=== PATIENT | female | born 1985 | race Caucasian/White ===

== ENCOUNTER → 2016-06-26 | Outpatient (CLI) | payer BC | LOC: NEURO 12:31 | PROVIDERS: ATTEND Nurse Practitioner | DX: R56.9 Unspecified convulsions (principal) | CPT/HCPCS: 95819 ==

== ENCOUNTER → 2017-07-18 | Outpatient (CLI) | payer BC ==
[2017-07-18 19:28] LABS: ABSOLUTE EOSINOPHILS # (AUTO) 0.2 10^3/uL (0.0-0.6); ABSOLUTE LYMPHOCYTES (AUTO) 3.1 10^3/uL (0.5-4.7); ABSOLUTE MONOCYTES (AUTO) 0.4 10^3/uL (0.1-1.4); ABSOLUTE NEUT (AUTO) 6.1 10^3/uL (1.7-8.2); BASOPHILS % (AUTO) 0.4 % (0-2); EOSINOPHILS % (AUTO) 1.9 % (0-6); HEMATOCRIT 39.5 % (36.0-47.0); HEMOGLOBIN 13.6 g/dL (12.0-15.5); LYMPHOCYTES % (AUTO) 31.6 % (13-45); MEAN CORPUSCULAR HGB CONC 34.5 g/dL (32.0-36.0); MEAN CORPUSCULAR VOLUME 87 fl (80-97); MONOCYTES % (AUTO) 4.5 % (3-13); PLATELET COUNT 209 10^3/uL (150-450); RED BLOOD COUNT 4.54 10^6/uL (3.72-5.28); RED CELL DISTRIBUTION WIDTH 12.3 % (11.5-14.0); SEGMENTED NEUTROPHILS % (AUTO) 61.6 % (42-78); TOTAL CELLS COUNTED % (AUTO) 100 %; WHITE BLOOD COUNT 9.9 10^3/uL (4.0-10.5)
[2017-07-18 19:50] LABS: ALANINE AMINOTRANSFERASE 23 U/L (9-52); ALBUMIN 4.2 g/dL (3.5-5.0); ALKALINE PHOSPHATASE 52 U/L (38-126); ANION GAP 11 (5-19); ASPARTATE AMINO TRANSFERASE 16 U/L (14-36); BILIRUBIN,DIRECT 0.2 mg/dL (0.0-0.4); BILIRUBIN,TOTAL 0.5 mg/dL (0.2-1.3); BLOOD UREA NITROGEN 11 mg/dL (7-20); C-REACTIVE PROTEIN 15.8 mg/L (<10.0); CALCIUM 9.4 mg/dL (8.4-10.2); CARBON DIOXIDE 24 mmol/L (22-30); CHLORIDE 102 mmol/L (98-107); GLUCOSE 88 mg/dL (75-110); LIPASE 99.5 U/L (23-300); POTASSIUM 3.7 mmol/L (3.6-5.0); SODIUM 136.8 mmol/L (137-145); TOTAL PROTEIN 6.8 g/dL (6.3-8.2)
== END ==
LOC: OD 17:57
PROVIDERS: ATTEND Internal Medicine Gastroenterology
DX: R10.11 Right upper quadrant pain (principal)
CPT/HCPCS: 36415; 80048; 80076; 83690; 85025; 86140

== ENCOUNTER 2019-09-18 11:23 | Outpatient (CLI) | payer BC, MEDICAID ==
--- NOTE | 2019-09-18 11:56 | Non Stress Test Report ---
Non Stress Test Datetime Report Generated by CPN: 09/18/2019 11:56 DEMOGRAPHIC EGA NST: 35.1 INDICATION Indication for Study (NST) Other: repeat from [facility] VITAL SIGNS Temperature - NST: 98.8 Pulse - NST: 95 RESP - NST: 15 NBPSYS NST: 140 NBPDIA NST: 82 MONITORING Monitor Explained: Monitor Explained; Test Explained; Patient Verbalized Understanding Time on Monitor: 09/18/2019 11:33 Time off Monitor: 09/18/2019 11:54 NST Duration: 21 NST INTERVENTIONS NST Interventions: PO Hydration Physician Notified NST: A. Fraser CNM BABY A: [id number] BABY A Movement : Present Contraction Frequency : irritability FHR Baseline : 130 Accelerations : 15X15 Decelerations : None Variability : Moderate 6-25bpm NST Review: Meets Criteria for Reactive NST NST Review and Verified By : B Baidy RN NST Results: Reactive NST COMMENTS NST Comments: provider on unit reviewing fht strip NST REPORT Report Trigger: Send Report
== END 2019-09-18 11:57 | disposition home or self-care (01) ==
LOC: LC 11:23
PROVIDERS: ATTEND Obstetrics & Gynecology
PROC: 4A1HXCZ Monitoring of Products of Conception, Cardiac Rate, External Approach (ICD-10-PCS; principal; 2019-09-18)
DX: O24.419 Gestational diabetes mellitus in pregnancy, unspecified control (principal); O10.913 Unspecified pre-existing hypertension complicating pregnancy, third trimester; O09.513 Supervision of elderly primigravida, third trimester; Z3A.35 35 weeks gestation of pregnancy; Z88.1 Allergy status to other antibiotic agents; Z88.0 Allergy status to penicillin; Z88.2 Allergy status to sulfonamides
CPT/HCPCS: 59025

== ENCOUNTER 2019-10-14 18:45 | Inpatient (IN) | payer BC, MEDICAID ==
[2019-10-14] MEDS ORDERED: RINGERS SOLUTION,LACTATED 1,000 ML IV PRN (19:12)
[2019-10-14] MEDS ORDERED: RINGERS SOLUTION,LACTATED 1,000 ML IV ONE ×2 (19:12→20:15)
[2019-10-14] MEDS ORDERED: DINOPROSTONE 10 MG VAGINAL INSERT.SR PV PRN (19:12)
[2019-10-14 19:35] LABS: ABSOLUTE EOSINOPHILS # (AUTO) 0.1 10^3/uL (0.0-0.6); ABSOLUTE MONOCYTES (AUTO) 0.6 10^3/uL (0.1-1.4); ABSOLUTE NEUT (AUTO) 6.2 10^3/uL (1.7-8.2); BASOPHILS % (AUTO) 0.3 % (0-2); EOSINOPHILS % (AUTO) 0.9 % (0-6); HEMATOCRIT 36.3 % (36.0-47.0); LYMPHOCYTES % (AUTO) 22.1 % (13-45); MEAN CORPUSCULAR HGB CONC 35.9 g/dL (32.0-36.0); MEAN CORPUSCULAR VOLUME 89 fl (80-97); MONOCYTES % (AUTO) 7.1 % (3-13); PLATELET COUNT 137 10^3/uL (150-450); RED BLOOD COUNT 4.07 10^6/uL (3.72-5.28); SEGMENTED NEUTROPHILS % (AUTO) 69.6 % (42-78); TOTAL CELLS COUNTED % (AUTO) 100 %; WHITE BLOOD COUNT 8.9 10^3/uL (4.0-10.5)
[2019-10-14] MEDS: RINGERS SOLUTION,LACTATED 1,000 ML IV PRN (19:41)
[2019-10-14 20:01] LABS: URINE AMPHETAMINES SCREEN NEGATIVE; URINE BARBITURATES SCREEN NEGATIVE; URINE BENZODIAZEPINES SCREEN NEGATIVE; URINE COCAINE SCREEN NEGATIVE; URINE MARIJUANA (THC) SCREEN NEGATIVE; URINE METHADONE SCREEN NEGATIVE; URINE PHENCYCLIDINE SCREEN NEGATIVE
[2019-10-14] MEDS ORDERED: DINOPROSTONE 10 MG VAGINAL INSERT.SR ONE (20:10)
--- NOTE | 2019-10-14 20:38 | Admission Physical ---
Datetime Report Generated by CPN: 10/14/2019 20:37 CURRENT ADMISSION Chief Complaint: Scheduled Induction of Labor Indication for Induction: Chronic Primary/Essential HTN; Maternal Diabetes Admit Impression : Term, Intrauterine ; No Active Labor Admit Plan: Admit to Unit; Initiate Labor Induction Protocol ALLERGIES Medication Allergies: Yes Medication Allergies: Penicillins (10/14/2019); Sulfa (Sulfonamide Antibiotics) (10/14/2019); amoxicillin/WV (10/14/2019) Latex: No Latex Allergies Food Allergies: none Environmental Allergies: none OBSTETRICAL HISTORY EDC: 10/22/2019 00:00 : 1 Para: 0 Term: 0 : 0 SAB: 0 IAB: 0 Ectopic: 0 Livin Cesareans: 0 VBACs: 0 Multiple Births: 0 (Annotations: Data stored by CPN on behalf of user) Gestational Diabetes: Yes Rh Sensitization: No Incompetent Cervix: No MATTHEW: No Infertility: No ART Treatment: No Uterine Anomaly: No IUGR: No Hx Previous C/S: No Macrosomia: Unknown Hx Loss/Stillborn: No PIH: No Hx : No Placenta Previa/Abruption: No Depression/PP Depression: No PTL/PROM: No Post Hemorrhage: No Current Procedures: Ultrasound Obstetrical History Comments: G1- current SEE RECORDS Alcohol: No Marijuana : No Cocaine: No Other Illicit Drugs: No Cigarettes: Never Smoker. 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 Surgery: No Heart Disease: No Hosp/Surgery: No Autoimmune Disorder: No Anesthetic Complications: No Kidney Disease: No Abnormal Pap Smear: No Neuro/Epilepsy: Yes Psychiatric Disorders: No Other Medical Diseases: No Hepatitis/Liver Disease: No Significant Family History: No Varicosities/Phlebitis: No Trauma/Violence : No Thyroid Dysfunction: No Medical History Comments: CHTN, hx of 2 seizures in 2016, GDM - glyburide INFECTIOUS HISTORY Gonorrhea: No Genital Herpes: No Chlamydia: No Tuberculosis: No Syphilis: No Hepatitis: No HIV/AIDS Exposure: No Rash or Viral Illness: No HPV: No PHYSICAL EXAM General: Normal HEENT: Normal Neurologic: Normal Thyroid: Deferred Heart: Normal Lungs: Normal Breast: Deferred Back: Normal Abdomen: Normal Genitourinary Exam: Normal Extremities: Normal DTRs: Normal Pelvic Type: Adequate Vital Signs: Reviewed VAGINAL EXAM Dilatation: 1 Effacement: 50 Station: -3 MEMBRANES Membranes: Intact FETUS A EGA: 38.6 Monitoring: External US FHR- Baseline: 130 Accelerations: 15X15 Decelerations: None FHR Category: Category I Presentation: Vertex Admit Comment: 24yo at 38+6ega presents for IOL due to CHTN and A2GDM. Glyburide 5mg BID. Baseline 24 hr UTP 422mg - CHTN on labetalol. AMA - negative materniti. Referral sent for ECHO and baby with mild increased cardiac output and f/u with pediatric cardiology and recommended f/u 6-7 months. Admit for IOL and cervidil. Then plan for possible cooks catheter and pitocin. PLANS FOR LABOR AND DELIVERY Labor and Delivery: None Pain Management: Epidural Feeding Preference: Breast Benefit of Breast Feed Discussed: Yes Circumcision: N/A INFORMED CONSENT Informed Consent Obtained: Vaginal Delivery; Risks, Benefits and Alternatives Discussed Signature: with User ID: [email or web address]
[2019-10-14 20:40] LABS: APPEARANCE,URINE SLIGHTLY-CLOUDY; BILIRUBIN,URINE NEGATIVE (NEGATIVE); COLOR,URINE YELLOW; GLUCOSE, URINE NEGATIVE (NEGATIVE); KETONES,URINE 20 mg/dL (NEGATIVE); LEUKOCYTE ESTERASE,URINE NEGATIVE (NEGATIVE); NITRITE,URINE NEGATIVE (NEGATIVE); PROTEIN,URINE NEGATIVE (NEGATIVE); URINE SPECIFIC GRAVITY 1.026; UROBILINOGEN,URINE NEGATIVE mg/dL (<2.0)
[2019-10-14] MEDS: DINOPROSTONE 10 MG VAGINAL INSERT.SR PV PRN (20:53)
[2019-10-14] MEDS ORDERED: LIDOCAINE 1% INJ-PF (10 MG/ML) 30 ML SDV ONE (23:12)
[2019-10-14] MEDS ORDERED: MISOPROSTOL 0.2 MG TABLET ONE (23:12)
[2019-10-14] MEDS ORDERED: OXYTOCIN 10 UNIT/ML VIAL ONE (23:12)
[2019-10-14] MEDS ORDERED: OXYTOCIN/NORMAL SALINE 20 UNIT/1,000 ML RTUINJ ONE (23:13)
[2019-10-15] MEDS ORDERED: DINOPROSTONE 10 MG VAGINAL INSERT.SR ONE (10:08)
[2019-10-15] MEDS: DINOPROSTONE 10 MG VAGINAL INSERT.SR PV PRN (10:54)
[2019-10-15] MEDS ORDERED: HYDROMORPHONE HCL INJ/PF 2 MG/ML AMPULE IV ONE ×2 (12:08→20:30)
[2019-10-15] MEDS ORDERED: PROMETHAZINE HCL INJ 25 MG/1 ML VIAL IV ONE (12:08)
[2019-10-15] MEDS ORDERED: HYDROMORPHONE HCL INJ/PF 2 MG/ML AMPULE ONE ×2 (12:11→20:36)
[2019-10-15] MEDS ORDERED: PROMETHAZINE HCL INJ 25 MG/1 ML VIAL ONE (12:11)
[2019-10-15] MEDS ORDERED: HYDRALAZINE HCL INJ/PF 20 MG/1 ML SDV IV ONE (20:30)
[2019-10-15] MEDS ORDERED: HYDRALAZINE HCL INJ/PF 20 MG/1 ML SDV ONE (20:35)
[2019-10-15] MEDS ORDERED: DINOPROSTONE 10 MG VAGINAL INSERT.SR PV ONE (23:04)
[2019-10-16] MEDS ORDERED: HYDROMORPHONE HCL INJ/PF 2 MG/ML AMPULE IV ONE (02:38)
[2019-10-16] MEDS ORDERED: HYDROMORPHONE HCL INJ/PF 2 MG/ML AMPULE ONE (02:38)
[2019-10-16] MEDS ORDERED: FENTANYL/BUPIVACAINE/NS/PF 300 MCG/150 ML RTUINJ EPI ONE (05:11)
[2019-10-16] MEDS ORDERED: EPHEDRINE SULFATE INJ 50 MG/1 ML AMPULE ONE (05:11)
[2019-10-16] MEDS ORDERED: FENTANYL CITRATE INJ/PF 100 MCG/2 ML AMPUL ONE (05:12)
[2019-10-16] MEDS ORDERED: BUPIVACAINE HCL 0.25 % INJ/PF (2.5 MG/1 ML) 30 ML VIAL ONE (05:12)
[2019-10-16] MEDS ORDERED: HYDRALAZINE HCL INJ/PF 20 MG/1 ML SDV IV ONE (06:11)
[2019-10-16] MEDS ORDERED: OXYTOCIN/NORMAL SALINE 20 UNIT/1,000 ML RTUINJ IV PRN ×2 (08:29→16:03)
[2019-10-16] MEDS: LABETALOL HCL 200 MG TABLET PO SCH ×3 (09:18→22:00)
[2019-10-16 09:35] LABS: ABSOLUTE MONOCYTES (AUTO) 0.7 10^3/uL (0.1-1.4); ABSOLUTE NEUT (AUTO) 11.9 10^3/uL (1.7-8.2); BASOPHILS % (AUTO) 0.2 % (0-2); HEMATOCRIT 38.2 % (36.0-47.0); HEMOGLOBIN 13.6 g/dL (12.0-15.5); LYMPHOCYTES % (AUTO) 7.1 % (13-45); MEAN CORPUSCULAR HEMOGLOBIN 31.9 pg (27.0-33.4); MEAN CORPUSCULAR HGB CONC 35.6 g/dL (32.0-36.0); MEAN CORPUSCULAR VOLUME 90 fl (80-97); MONOCYTES % (AUTO) 4.8 % (3-13); PLATELET COUNT 130 10^3/uL (150-450); RED BLOOD COUNT 4.26 10^6/uL (3.72-5.28); SEGMENTED NEUTROPHILS % (AUTO) 87.9 % (42-78); TOTAL CELLS COUNTED % (AUTO) 100 %; WHITE BLOOD COUNT 13.6 10^3/uL (4.0-10.5)
[2019-10-16 10:00] LABS: BLOOD UREA NITROGEN 13 mg/dL (7-20); CARBON DIOXIDE 19 mmol/L (22-30); CHLORIDE 103 mmol/L (98-107); GLUCOSE 119 mg/dL (75-110); POTASSIUM 4.1 mmol/L (3.6-5.0)
[2019-10-16 10:01] LABS: ALBUMIN 3.2 g/dL (3.5-5.0); ALKALINE PHOSPHATASE 97 U/L (38-126); ANION GAP 10 (5-19); ASPARTATE AMINO TRANSFERASE 31 U/L (14-36); BILIRUBIN,TOTAL 0.7 mg/dL (0.2-1.3); TOTAL PROTEIN 5.9 g/dL (6.3-8.2); URIC ACID 5.9 mg/dL (2.5-7.0)
[2019-10-16] MEDS: RINGERS SOLUTION,LACTATED 1,000 ML IV PRN (11:08)
[2019-10-16] MEDS ORDERED: PROMETHAZINE HCL 25 MG TABLET PO PRN (16:03)
[2019-10-16] MEDS ORDERED: NA PHOS,M-B/NA PHOS,DI-BA (ADULT) 133 ML ENEMA PR PRN (16:03)
[2019-10-16] MEDS ORDERED: DIPHENHYDRAMINE HCL 25 MG CAPSULE PO PRN (16:03)
[2019-10-16] MEDS ORDERED: DIBUCAINE 1% OINTMENT 28 GM TP PRN (16:03)
[2019-10-16] MEDS ORDERED: ACETAMINOPHEN 650 MG SUPP.RECT PR PRN (16:03)
[2019-10-16] MEDS ORDERED: ZOLPIDEM TARTRATE 5 MG TABLET PO PRN (16:03)
[2019-10-16] MEDS ORDERED: PROMETHAZINE HCL INJ 25 MG/1 ML VIAL IV PRN (16:03)
[2019-10-16] MEDS ORDERED: BENZOCAINE/MENTHOL AEROSOL SPRAY 56 ML TOP PRN (16:03)
[2019-10-16] MEDS ORDERED: GLYCERIN/WITCH HAZEL LEAF 1 EACH MED..WIPE TP PRN (16:03)
[2019-10-16] MEDS ORDERED: PSEUDOEPHEDRINE HCL 30 MG TABLET PO PRN (16:03)
[2019-10-16] MEDS ORDERED: MEASLES,MUMPS&RUBELLA VACC/PF 0.5 ML VIAL SUBCUT PRN (16:03)
[2019-10-16] MEDS ORDERED: DIPH/PERTUSS(ACELL)/TETANUS VAC/PF 0.5 ML SYR (>=10YO) IM PRN (16:03)
[2019-10-16] MEDS ORDERED: PROMETHAZINE HCL 25 MG SUPP.RECT PR PRN (16:03)
[2019-10-16] MEDS ORDERED: MAGNESIUM HYDROXIDE SUSP 30 ML UDCUP PO PRN (16:03)
[2019-10-16] MEDS ORDERED: ACETAMINOPHEN WITH CODEINE #3 TABLET PO PRN ×2 (16:03)
--- NOTE | 2019-10-16 17:37 | Warning Signs in Babies ---
VOD Warning Signs Datetime Report Generated by [facility]: 10/16/2019 17:37 VOD#608 -Warning Signs in Babies: Needs to be viewed. (09/18/2019 11:26:Nathalie Montenegro RN)
--- NOTE | 2019-10-16 17:42 | Delivery Summary ---
Del Sum A-C Datetime Report Generated by CPN: 10/16/2019 17:42 DELIVERY PERSONNEL DELIVERY PERSONNEL: [id number] Delivery Doctor:: Winter Fraser CNM Nurse Horse Racing Manager Certified:: Winter Fraser CNM Labor and Delivery Nurse:: Garima Singh RNassociate professor computer science Nurse:: Nathalie Montenegro RN Nursery Nurse:: Pattie Gresham RN Nursery Nurse:: FAVIAN Gomez Tech/SERVICE LEARNING COORDINATOR: Lauren Woodward, PUMP SERVICE SUPERVISOR MATERNAL INFORMATION Delivery Anesthesia: Epidural Medications After Delivery: Pitocin Drip 20 Units/1000ml NSS Delivery QBL: 100 Maternal Complications: None Provider Comments: OF VIABLE FEMALE INFANT GABRIEL. NUCHAL CORD X1 REDUCED AFTER DELIVERY OF HEAD. SHOULD DYSTOCIA NOTED AND WE CALLED FOR DR RAMÍREZ AND EXTRA HELP. SUPRAPUBIC PRESSURE AND MC LOO PERFORMED BY RNs NOT SUCCESSFUL. WOODSCREW ROTATED BABY TO DIRECT OA AND BABY DELIVERED WITH NO RESPIRATORY EFFORT OR TONE. CORD DOUBLE CLAMPED AND CUT BY RN. BABY TRANSFERRED TO THE WARMER TO AWAITING NURSERY NURSES AND AUTO HIKER FOR ASSESSMENT AND RESCUSSITATION. PLACENTA DELIVERED INTACT WITH 3VC. POSTERIOR VAGINAL LACERATION REAPPROXIMATES WITHOUT INTERVENTION AND NOT BLEEDING-NOT REPAIRED. BABY VIGOROUS AT 5 MINS. SHOULDER DYSTOCIA WAS 1.5 MINS. MOTHER STABLE IN L_D ROOM #2. BABY TRANSFERRED TO THE NURSERY FOR CONTINUED OBSERVATION. LABOR SUMMARY EDC: 10/22/2019 00:00 No. Babies in Womb: 1 Attempted: No Labor Anesthesia: Epidural LABOR INFORMATION Reason for Induction: Gestational Hypertension; Maternal Diabetes Onset of Labor: 10/16/2019 05:06 Complete Dilatation: 10/16/2019 15:06 Cervical Ripening Agents: Cervidil Oxytocin: Induction Group B Beta Strep: negative (Annotations: Data stored by [facility] on behalf of user) Antibiotics # of Doses: 0 Antibiotics Time of Last Dose: N/A Name of Antibiotic Given: N/A Steroids Given: None Reason Steroids Not Administered: Not Applicable MEMBRANES Membranes Rupture Method: Spontaneous Rupture of Membranes: 10/16/2019 00:15 Length of Rupture (hr): 15.22 Amniotic Fluid Color: Clear Amniotic Fluid Amount: Moderate Amniotic Fluid Odor: None STAGES OF LABOR Stage 1 hr: 10 Stage 1 min: 0 Stage 2 hr: 0 Stage 2 min: 22 Stage 3 hr: 0 Stage 3 min: 6 Total Time in Labor hr: 10 Total Time in Labor min: 28 VAGINAL DELIVERY Episiotomy: None Laceration #1: Vaginal Laceration Extension #1: First Degree Laceration Repair: Not Applicable Sponge Count Correct: N/A Sharps Count Correct: N/A CSECTION DELIVERY Primary Indication: N/A Secondary Indication: N/A CSection Incidence: N/A Labor: N/A Elective: N/A CSection Incision: N/A BABY A INFORMATION Infant Delivery Date/Time: 10/16/2019 15:28 Method of Delivery: Vaginal Nurse Controlled Delivery: No Born in Route : No : N/A Forceps: N/A Vacuum Extraction: N/A Shoulder Dystocia : Yes SHOULDER DYSTOCIA BABY A Delivery of Head: 10/16/2019 15:26 Time Head to Delivery : 2.0 1st Intervention to Resolve: McRobert's Maneuver 2nd Intervention to Resolve: Suprapubic Pressure 3rd Intervention to Resolve: Mota Maneuver Verify NO Fundal Pressure: No Fundal Pressure Applied Arm Under Symphisis at Del: Right Shoulder Dystocia Comments: delivery of head was 15:26:30, making it a total time of 1.5 minutes. PRESENTATION/POSITION BABY A Presentation: Cephalic Cephalic Presentation: Vertex Vertex Position: Left Occipital Anterior Breech Presentation: N/A PLACENTA INFORMATION BABY A Placenta Delivery Time : 10/16/2019 15:34 Placenta Method of Delivery: Spontaneous Placenta Status: Delivered SCORES BABY A Heart Rate 1 min: >100 bpm Resp Effort 1 min: Absent Reflex Irritability 1 min: No Response Muscle Tone 1 min: Flaccid Color 1 min: Blue/Pale Resuscitation Effort 1 min: Tactile Stimulation; Oxygen SCORE 1 MIN: 2 Heart Rate 5 min: >100 bpm Resp Effort 5 min: Good Cry Reflex Irritability 5 min: Cough or Sneeze or Pulls Away Muscle Tone 5 min: Active Motion Color 5 min: Body [place], Extremities Blue SCORE 5 MIN: 9 INFORMATION BABY A Gestational Age at Delivery: 39.1 Gestational Status: Full Term- 39- 40.6 Weeks Outcome : Liveborn Condition : Stable Sex: Female IDENTIFICATION BABY A Verification Date/Time: 10/16/2019 15:44 ID Band Number: [id number] Mother's Name Verified: Yes RN Verifying Infant: Jniebuhr, RN Additional Verifying Personnel: MMmoray, RN WEIGHT/LENGTH BABY A Infant Birthweight (gm): 3460 Weight (lb): 7 Infant Weight (oz): 10 Infant Length (in): 21.50 Length (cm): 54.61 CORD INFORMATION BABY A No. Cord Vessels: 3 Nuchal Cord : Around Neck x1, Tight Cord Blood Taken: Yes-For Eval (Mom's Blood Type - or O+) Suction: None ASSESSMENT BABY A Infant Complications: Multiple Late Decels; Meconium; Shoulder Dystocia Physical Findings at Delivery: Caput Succedaneum; Molding of the Head Infant Respirations: Appears Normal Skin to Skin: Yes Skin to Skin Time (min): 15 Infant Care By: FAVIAN Omalley, FAVIAN Arguello and FAVIAN Wynn Transferred To: [facility] RESUSCITATION BABY A Resuscitation Effort: Tactile Stimulation; Oxygen; PPV/NCPAP (Annotations: PPV applied for 20 seconds resulting in spontaneous crying effort, improved tone and color. Respirations returned to normal after initial PPV and PPV removed with infant remaining stabilized. ) BABY B INFORMATION : N/A SIGNATURES Assignment: Eric Ramírez MD Signature: with User ID: [email or web address] : with User ID: [email or web address] : I was personally available for consultation and serving as supervising physician for the MLP.
[2019-10-16] MEDS: IBUPROFEN 800 MG TABLET PO SCH ×2 (18:17→21:50)
[2019-10-16] MEDS: DOCUSATE SODIUM 100 MG CAPSULE PO SCH (18:18)
[2019-10-16] MEDS: FERROUS SULFATE 325 MG TABLET PO SCH (18:18)
[2019-10-16] MEDS: FAMOTIDINE 20 MG TABLET PO SCH (21:51)
[2019-10-17] MEDS: LABETALOL HCL 200 MG TABLET PO SCH ×4 (05:16→23:36)
[2019-10-17] MEDS: IBUPROFEN 800 MG TABLET PO SCH ×3 (06:13→21:03)
[2019-10-17 06:31] LABS: ABSOLUTE EOSINOPHILS # (AUTO) 0.1 10^3/uL (0.0-0.6); ABSOLUTE MONOCYTES (AUTO) 0.9 10^3/uL (0.1-1.4); ABSOLUTE NEUT (AUTO) 8.8 10^3/uL (1.7-8.2); BASOPHILS % (AUTO) 0.2 % (0-2); EOSINOPHILS % (AUTO) 0.4 % (0-6); HEMATOCRIT 31.4 % (36.0-47.0); LYMPHOCYTES % (AUTO) 17.1 % (13-45); MEAN CORPUSCULAR HEMOGLOBIN 32.4 pg (27.0-33.4); MEAN CORPUSCULAR HGB CONC 36.6 g/dL (32.0-36.0); MEAN CORPUSCULAR VOLUME 89 fl (80-97); MONOCYTES % (AUTO) 7.8 % (3-13); PLATELET COUNT 124 10^3/uL (150-450); RED BLOOD COUNT 3.54 10^6/uL (3.72-5.28); SEGMENTED NEUTROPHILS % (AUTO) 74.5 % (42-78); TOTAL CELLS COUNTED % (AUTO) 100 %; WHITE BLOOD COUNT 11.9 10^3/uL (4.0-10.5)
[2019-10-17 06:39] LABS: HEMOGLOBIN 11.5 g/dL (12.0-15.5)
[2019-10-17] MEDS: FAMOTIDINE 20 MG TABLET PO SCH ×2 (09:19→21:03)
[2019-10-17] MEDS: SENNOSIDES/DOCUSATE 8.6-50 MG 1 EACH TABLET PO SCH (09:19)
[2019-10-17] MEDS: DOCUSATE SODIUM 100 MG CAPSULE PO SCH ×2 (09:19→17:20)
[2019-10-17] MEDS: FERROUS SULFATE 325 MG TABLET PO SCH ×2 (09:20→17:22)
[2019-10-17] MEDS: PRENATAL VITAMIN W DHA CAPSULE PO SCH (09:21)
--- NOTE | 2019-10-17 12:00 | PDOC PROGRESS REPORT ---
Subjective-OB Progress Note for:: 10/17/19 Subjective: reports bleeding slowing, pain controlled with current meds. denies needs Physical Exam (OB) Vital Signs: Temp Pulse Resp BP Pulse Ox 98.0 F 96 16 125/72 100 10/17/19 11:18 10/17/19 11:18 10/17/19 11:18 10/17/19 11:18 10/17/19 11:18 Intake & Output 10/16/19 10/17/19 10/18/19 06:59 06:59 06:59 Intake Total 800 Balance 800 - Lochia Lochia Amount: Small 10-25 ml Lochia Color: Rubra/Red - Abdomen Description: Soft Hernia Present: No Fundal Description: Firm, Midline Fundal Height: u/u - u/2 - Abdominal Distension: No distension Tenderness: Nontender - Extremities Lower extremities: Chidi's sign - neg Calf: Normal, Nontender Objective-Diagnostic Laboratory: 10/17/19 06:08 10/16/19 09:13 10/17/19 06:08 WBC 11.9 H RBC 3.54 L Hgb 11.5 L D Hct 31.4 L MCV 89 MCH 32.4 MCHC 36.6 H RDW 13.0 Plt Count 124 L Seg Neutrophils % 74.5 Assessment and Plan(PN) - Assessment and Plan (1) Advanced maternal age (AMA) in Is this a current diagnosis for this admission?: Yes (2) Chronic hypertension affecting Is this a current diagnosis for this admission?: Yes (3) Gestational diabetes mellitus (GDM) controlled on oral hypoglycemic drug Is this a current diagnosis for this admission?: Yes (4) Shoulder dystocia during labor and delivery, delivered Is this a current diagnosis for this admission?: Yes (5) Vaginal delivery Is this a current diagnosis for this admission?: Yes - Time Spent with Patient Time with patient: Less than 15 minutes Medications reviewed and adjusted accordingly: Yes - Disposition Anticipated Discharge: Home Within: within 24 hours
[2019-10-18] MEDS: LABETALOL HCL 200 MG TABLET PO SCH ×2 (06:10→12:09)
[2019-10-18] MEDS: IBUPROFEN 800 MG TABLET PO SCH ×2 (06:10→13:18)
[2019-10-18] MEDS: SENNOSIDES/DOCUSATE 8.6-50 MG 1 EACH TABLET PO SCH (09:30)
[2019-10-18] MEDS: PRENATAL VITAMIN W DHA CAPSULE PO SCH (09:30)
[2019-10-18] MEDS: DOCUSATE SODIUM 100 MG CAPSULE PO SCH (09:31)
[2019-10-18] MEDS: FAMOTIDINE 20 MG TABLET PO SCH (09:31)
[2019-10-18] MEDS: FERROUS SULFATE 325 MG TABLET PO SCH (09:31)
--- NOTE | 2019-10-18 10:42 | PDOC DISCHARGE SUMMARY ---
Impression - Admit/DC Date/PCP Admission Date/Primary Care Provider: 10/14/19 18:45 Discharge Date: 10/18/19 - Discharge Diagnosis (1) Advanced maternal age (AMA) in Is this a current diagnosis for this admission?: Yes (2) Chronic hypertension affecting Is this a current diagnosis for this admission?: Yes (3) Gestational diabetes mellitus (GDM) controlled on oral hypoglycemic drug Is this a current diagnosis for this admission?: Yes (4) Shoulder dystocia during labor and delivery, delivered Is this a current diagnosis for this admission?: Yes (5) Vaginal delivery Is this a current diagnosis for this admission?: Yes - Additional Information Discharge Diet: Regular Discharge Activity: Balance Activity w/Rest, Pelvic Rest Prescriptions: Ibuprofen [Motrin 800 mg Tablet] 800 mg PO Q8HP PRN #60 tablet PRN Reason: Home Medications: L.acidoph,Paracasei, B.lactis [Probiotic] 1 tab PO DAILY 10/14/19 Pnv 39/Iron/Folic/Docusate/Dha [Scott-Prex Dha Cap] 1 tab PO DAILY 10/14/19 Ibuprofen [Motrin 800 mg Tablet] 800 mg PO Q8HP PRN #60 tablet 10/18/19 Labetalol HCl [Normodyne 200 mg Tablet] 200 mg PO TID #0 10/18/19 Results Laboratory Results: WBC 11.9 10^3/uL (4.0-10.5) H 10/17/19 06:08 RBC 3.54 10^6/uL (3.72-5.28) L 10/17/19 06:08 Hgb 11.5 g/dL (12.0-15.5) L D 10/17/19 06:08 Hct 31.4 % (36.0-47.0) L 10/17/19 06:08 MCV 89 fl (80-97) 10/17/19 06:08 MCH 32.4 pg (27.0-33.4) 10/17/19 06:08 MCHC 36.6 g/dL (32.0-36.0) H 10/17/19 06:08 RDW 13.0 % (11.5-14.0) 10/17/19 06:08 Plt Count 124 10^3/uL (150-450) L 10/17/19 06:08 Lymph % (Auto) 17.1 % (13-45) 10/17/19 06:08 [place] % (Auto) 7.8 % (3-13) 10/17/19 06:08 Eos % (Auto) 0.4 % (0-6) 10/17/19 06:08 Baso % (Auto) 0.2 % (0-2) 10/17/19 06:08 Absolute Neuts (auto) 8.8 10^3/uL (1.7-8.2) H 10/17/19 06:08 Absolute Lymphs (auto) 2.0 10^3/uL (0.5-4.7) 10/17/19 06:08 Absolute Monos (auto) 0.9 10^3/uL (0.1-1.4) 10/17/19 06:08 Absolute Eos (auto) 0.1 10^3/uL (0.0-0.6) 10/17/19 06:08 Absolute Basos (auto) 0.0 10^3/uL (0.0-0.2) 10/17/19 06:08 Seg Neutrophils % 74.5 % (42-78) 10/17/19 06:08 Sodium 131.9 mmol/L (137-145) L 10/16/19 09:13 Potassium 4.1 mmol/L (3.6-5.0) 10/16/19 09:13 Chloride 103 mmol/L (98-107) 10/16/19 09:13 Carbon Dioxide 19 mmol/L (22-30) L 10/16/19 09:13 Anion Gap 10 (5-19) 10/16/19 09:13 BUN 13 mg/dL (7-20) 10/16/19 09:13 Creatinine 0.84 mg/dL (0.52-1.25) 10/16/19 09:13 Est GFR ( Amer) > 60 (>60) 10/16/19 09:13 Est GFR (MDRD) Non-Af > 60 (>60) 10/16/19 09:13 Glucose 119 mg/dL (75-110) H 10/16/19 09:13 POC Glucose 63 mg/dL (70-110) L 10/18/19 06:12 Uric Acid 5.9 mg/dL (2.5-7.0) 10/16/19 09:13 Calcium 9.0 mg/dL (8.4-10.2) 10/16/19 09:13 Total Bilirubin 0.7 mg/dL (0.2-1.3) 10/16/19 09:13 Direct Bilirubin 0.0 mg/dL (0.0-0.4) 10/16/19 09:13 Neonat Total Bilirubin Not Reportable 10/16/19 09:13 Neonat Direct Bilirubin Not Reportable 10/16/19 09:13 Neonat Indirect Bili Not Reportable 10/16/19 09:13 AST 31 U/L (14-36) 10/16/19 09:13 ALT 26 U/L (<35) 10/16/19 09:13 Alkaline Phosphatase 97 U/L (38-126) 10/16/19 09:13 Lactate Dehydrogenase 184 U/L (120-246) 10/16/19 09:13 Total Protein 5.9 g/dL (6.3-8.2) L 10/16/19 09:13 Albumin 3.2 g/dL (3.5-5.0) L 10/16/19 09:13 Urine Color YELLOW 10/14/19 19:00 Urine Appearance SLIGHTLY-CLOUDY 10/14/19 19:00 Urine pH 5.0 (5.0-9.0) 10/14/19 19:00 Ur Specific [place] 1.026 10/14/19 19:00 Urine Protein NEGATIVE mg/dL (NEGATIVE) 10/14/19 19:00 Urine Glucose (UA) NEGATIVE mg/dL (NEGATIVE) 10/14/19 19:00 Urine Ketones 20 mg/dL (NEGATIVE) H 10/14/19 19:00 Urine Blood NEGATIVE (NEGATIVE) 10/14/19 19:00 Urine Nitrite NEGATIVE (NEGATIVE) 10/14/19 19:00 Urine Bilirubin NEGATIVE (NEGATIVE) 10/14/19 19:00 Urine Urobilinogen NEGATIVE mg/dL (<2.0) 10/14/19 19:00 Ur Leukocyte Esterase NEGATIVE (NEGATIVE) 10/14/19 19:00 Urine WBC (Auto) 1 /HPF 10/14/19 19:00 Urine RBC (Auto) 1 /HPF 10/14/19 19:00 Squamous Epi Cells Auto 3 /HPF 10/14/19 19:00 Urine Mucus (Auto) RARE /LPF 10/14/19 19:00 Urine Ascorbic Acid NEGATIVE (NEGATIVE) 10/14/19 19:00 Urine Opiates Screen NEGATIVE 10/14/19 19:00 Urine Methadone Screen NEGATIVE 10/14/19 19:00 Ur Barbiturates Screen NEGATIVE 10/14/19 19:00 Ur Phencyclidine Scrn NEGATIVE 10/14/19 19:00 Ur Amphetamines Screen NEGATIVE 10/14/19 19:00 U Benzodiazepines Scrn NEGATIVE 10/14/19 19:00 Urine Cocaine Screen NEGATIVE 10/14/19 19:00 U Marijuana (THC) Screen NEGATIVE 10/14/19 19:00 RPR NONREACTIVE (NONREACTIVE) 10/14/19 19:25 Blood Type O POSITIVE 10/14/19 19:25 Antibody Screen NEGATIVE 10/14/19 19:25 Plan Plan of Treatment: follow up in one week at [facility] for blood pressure check
[2019-10-18 11:22] VITALS: BP 140/71
== END 2019-10-18 17:27 | disposition home or self-care (01) | DRG 807 ==
LOC: LR 18:45 → 2S 10-16 18:11
PROVIDERS: ADMIT Student in an Organized Health Care Education/Training Program; ATTEND Student in an Organized Health Care Education/Training Program
PROC: 10E0XZZ Delivery of Products of Conception, External Approach (ICD-10-PCS; principal; 2019-10-16)
PROC: 3E033VJ Introduction of Other Hormone into Peripheral Vein, Percutaneous Approach (ICD-10-PCS; 2019-10-16)
DX: O10.02 Pre-existing essential hypertension complicating childbirth (principal); O24.425 Gestational diabetes mellitus in childbirth, controlled by oral hypoglycemic drugs; O66.0 Obstructed labor due to shoulder dystocia; O70.0 First degree perineal laceration during delivery; O69.1XX0 Labor and delivery complicated by cord around neck, with compression, not applicable or unspecified; Z37.0 Single live birth; O76 Abnormality in fetal heart rate and rhythm complicating labor and delivery; Z3A.39 39 weeks gestation of pregnancy; Z88.0 Allergy status to penicillin; Z88.2 Allergy status to sulfonamides; Z79.899 Other long term (current) drug therapy
CPT/HCPCS: 36415; 80053; 80307; 81001; 82962; 83615; 84550; 85025; 86592; 86850; 86900; 86901; 94760; 99465; J0360; J1170; J2550; J2590; J3010; J3490